=== PATIENT | female | born 1990 | race Caucasian/White ===

== ENCOUNTER 2017-09-04 13:24 | Emergency (ER) | payer SELFPAY ==
[~2017-09-04] VITALS: Ht 167.6 cm; Wt 68.0 kg
[~2017-09-04 13:24] MED LIST: METR0.7514 VAGINAL
[2017-09-04 13:31] VITALS: BP 145/62; PULSE 102; RESP 18; TEMP 99.6; O2SAT 100
--- NOTE | 2017-09-04 13:51 | PD ---
HPI Chief Complaint: Cold / Flu Symptoms Time Seen by Provider: 13:41 Travel History International Travel<30 days: No Contact w/Intl Traveler<30days: No Traveled to known affect area: No History of Present Illness HPI This 27-year-old female is been sick for several days. She's been having fever and chills at home. She is had sore throat and cough. She has diffuse myalgias. She is generally healthy. She just finished her period. She has had quite a severe cough is caused her to have some pain in her chest when she takes deep breaths. She does not smoke. She is generally very healthy. She has not had the flu shot [facility] Past Medical History ?: Not LMP: 08/26/17 : 1 Miscarriage: 1 Ovarian Cysts: Yes Dilation and Curettage (D&C): Yes Social History Alcohol Use: Yes ("VERY RARELY") Tobacco Use: No Substance Use: No Allergies-Medications (Allergen,Severity, Reaction): Coded Allergies: penicillin G (Unverified Allergy, Severe, Anaphylaxis, 09/04/17) Reported Meds & Prescriptions Reported Meds & Active Scripts Active No Active Prescriptions or Reported Medications Review of Systems General / Constitutional: Positive: Fever, Chills Eyes: No: Diploplia, Blurred Vision HENT: No: Headaches, Vertigo Cardiovascular: No: Chest Pain or Discomfort Respiratory: Positive: Cough Gastrointestinal: Positive: Nausea, Loss of Appetite Genitourinary: No: Urgency, Frequency Skin: No Rash, No Itching Neurologic: Positive: Weakness Hematologic/Lymphatic: No: Easy Bruising Physical Exam Narrative GENERAL: Well-developed female SKIN: Focused skin assessment warm/dry. HEAD: Atraumatic. Normocephalic. EYES: Pupils equal and round. No scleral icterus. No injection or drainage. ENT: No nasal bleeding or discharge. Mucous membranes pink and moist. NECK: Trachea midline. No JVD. Posterior pharynx is erythematous CARDIOVASCULAR: Regular rate and rhythm. No murmur appreciated. RESPIRATORY: No accessory muscle use. Clear to auscultation. Breath sounds equal bilaterally. GASTROINTESTINAL: Abdomen soft, non-tender, nondistended. Hepatic and splenic margins not palpable. MUSCULOSKELETAL: No obvious deformities. No clubbing. No cyanosis. No edema. NEUROLOGICAL: Awake and alert. No obvious cranial nerve deficits. Motor grossly within normal limits. Normal speech. PSYCHIATRIC: Appropriate mood and affect; insight and judgment normal. Data Data Last Documented VS Vital Signs Date Time Temp Pulse Resp B/P (MAP) Pulse Ox O2 Delivery O2 Flow Rate FiO2 09/04/17 13:55 102 18 100 Room Air 09/04/17 13:31 99.6 145/62 (89) Orders Orders Chest, Single Ap (09/04/17 13:48) MDM Medical Decision Making Medical Screen Exam Complete: Yes Emergency Medical Condition: Yes Medical Record Reviewed: Yes Differential Diagnosis Differential includes upper respiratory infection, viral illness, pneumonia Narrative Course Chest x-ray is negative for pneumonia. Patient has an upper respiratory infection with persistent myalgias. I believe this is most likely influenza. She is out of the window for Tamiflu and I don't think testing for influenza would be beneficial. I will recommend fluids and Tylenol and Advil Diagnosis Primary Impression: Influenza Additional Instructions: Take Tylenol or Advil for fever Scripts No Active Prescriptions or Reported Meds Disposition: 01 DISCHARGE HOME Condition: Stable Juan Antonio Gilliam MD Sep 04, 2017 13:51
--- NOTE | 2017-09-04 14:19 | RADRPT ---
EXAM DATE/TIME: 09/04/2017 13:56 [facility] COMPARISON: No previous studies available for comparison. INDICATIONS : Cough and flu like symptoms MEDICAL HISTORY : None. SURGICAL HISTORY : None. ENCOUNTER: Initial ACUITY: 3 days PAIN SCORE: 2/10 LOCATION: Bilateral chest FINDINGS: A single view of the chest demonstrates the lungs to be symmetrically aerated without evidence of mas s, infiltrate or effusion. The cardiomediastinal contours are unremarkable. Osseous structures are intact. CONCLUSION: No acute disease. Oscar Balbuena MD on September 04, 2017 at 14:17 Board Certified Radiologist. This report was verified electronically.
== END 2017-09-04 14:45 | disposition home or self-care (01) ==
LOC: PHED 13:24
DX: J11.1 Influenza due to unidentified influenza virus with other respiratory manifestations (principal)
CPT/HCPCS: 71045; 99283